=== PATIENT | male | born 2000 | race Two or more races ===

== ENCOUNTER 2025-05-29 20:37 | Emergency (ER) | payer OTHER ==
[~2025-05-29] VITALS: Ht 180.3 cm; Wt 100.0 kg
--- NOTE | 2025-05-29 21:05 | ED.PDOC ---
History of Present Illness HPI Comments 24-year-old male who came to ER via EMS for overdose. Per EMS, family called, stating patient's overdose, as he took 10 tablets of Tylenol, and 10 tablets of propranolol, and was drinking vodka as well. Patient however denied it. He however admits that he is feeling suicidal, but would not explain further, r efusing to answer any more questions at this time. REVIEW OF SYSTEMS: General: No fever, no chills, or fatigue HEENT: No sore throat, no earache, no congestion, no neck pain. Cardiac: No chest pain. No palpitations. Lungs: No shortness of breath, no cough. GI: No nausea, no vomiting, no diarrhea, no constipation, no abdominal pain : No dysuria, frequency, or urgency. No hematuria. Musculoskeletal: No joint pain , no joint swelling, no extremity edema. Skin: No rash, no itching. Neuro: No headache, no dizziness, no weakness Psych: (+) suicidal EXAM: General: Awake, alert and oriented. No acute distress. Skin: Skin in warm, dry and intact. Appropriate color for ethnicity. HEENT: The head is normocephalic and atraumatic. Conjunctivae are clear without exudates or hemorrhage. Sclera is non-icteric. EOM are intact. No signs of nystagmus. Eyelids are normal in appearance without swelling or lesions. Oral mucosa is pink and moist Neck: The neck is supple with normal range of motion. No JVD. Cardiac: Heart rate and rhythm are normal. No murmurs, gallops, or rubs are auscultated. Respiratory: No signs of respiratory distress. Lung sounds are clear in all lobes bilaterally without rales, rhonchi, or wheezes. Abdominal: Abdomen is soft, non-tender without distention. Bowel sounds are present and normoactive in all four quadrants. Extremities: Upper and lower extremities are atraumatic in appearance without deformity or edema. Neurological: The patient is awake, alert and oriented to person, place, and ti me with normal speech. Speech is clear. There is no facial asymmetry. Psychiatric: Appropriate mood and affect. Good judgement and insight Chief Complaint: Overdose Time Seen by MD: 21:05 Reviewed Notes: Operations Trainer Notes Allergies: Coded Allergies: NO KNOWN ALLERGIES (Unverified , 05/29/25) Information Source: Patient, Emergency Med Personnel Mode of Arrival: EMS Past Medical History PAST MEDICAL HISTORY: Depression Surgical History: Denies all surgeries Family History Family History: Reviewed,noncontributory to illness Social History Smoker: Non-Smoker Alcohol: Occasionally Drugs: Denies Drug Use Lives In: Home Was a procedure done? Was a procedure done?: No Differential Dx Considerations may include: Anxiety, depression, suicide ideation, overdose, alcohol intoxication X-Ray, Labs, Meds, VS Vital Signs Date Time Temp Pulse Resp B/P (MAP) Pulse Ox O2 Delivery O2 Flow Rate FiO2 05/30/25 04:49 97.8 95 17 117/65 (82) 99 97.8 05/30/25 04:10 86 05/29/25 20:47 112 05/29/25 20:37 98.6 120 28 122/58 94 98.6 Lab Test 05/30/25 02:54 05/29/25 21:13 Range/Units Acetaminophen Level < 2.0 L < 2.0 L 10.0-20.0 UG/ML White Blood Count 6.9 4.4-10.8 10^3/uL Red Blood Count 5.37 4.5-5.90 10^6/uL Hemoglobin 16.4 13.5-17.5 g/dL Hematocrit 45.8 41.0-53.0 % Mean Corpuscular Volume 85.3 80.0-100.0 fL Mean Corpuscular Hemoglobin 30.5 28.0-32.0 pg Mean Corpuscular Hemoglobin Concent 35.8 32.0-36.0 g/dL Red Cell Distribution Width 15.1 H 11.8-14.3 % Platelet Count 246 140-450 10^3/uL Mean Platelet Volume 8.8 6.9-10.8 fL Neutrophils (%) (Auto) 67.5 37.0-80.0 % Lymphocytes (%) (Auto) 22.1 10.0-50.0 % Monocytes (%) (Auto) 9.4 0.0-12.0 % Eosinophils (%) (Auto) 0.5 0.0-7.0 % Basophils (%) (Auto) 0.5 0.0-2.0 % Neutrophils # (Auto) 4.7 1.6-8.6 10 ^3/uL Lymphocytes # (Auto) 1.5 0.4-5.4 10 ^3/uL Monocytes # (Auto) 0.6 0-1.3 10 ^3/uL Eosinophils # (Auto) 0 0-0.8 10 ^3/uL Basophils # (Auto) 0 0-0.2 10 ^3/uL Nucleated Red Blood Cells 0.1 % Sodium Level 144 136-145 mmol/L Potassium Level 4.1 3.5-5.1 mmol/L Chloride Level 108 H 98-107 mmol/L Carbon Dioxide Level 23 20-31 mmol/L Anion Gap 13 5-15 Blood Urea Nitrogen 10 9-23 mg/dL Creatinine 1.02 0.700-1.30 mg/dL Glomerular Filtration Rate Calc 107 >90 mL/min BUN/Creatinine Ratio 9.8 L 10.0-20.0 Serum Glucose 97 74-106 mg/dL Calcium Level 9.3 8.7-10.4 mg/dL Magnesium Level 2.3 1.6-2.6 mg/dL Total Bilirubin 0.4 0.2-1.0 mg/dL Aspartate Amino Transferase (AST) 28 13-40 U/L Alanine Aminotransferase (ALT) 20 7-40 U/L Alkaline Phosphatase 52 46-116 U/L Salicylates Level < 3.0 -30 mg/dL Plasma/Serum Blood Alcohol 324.4 H <10 mg/dL Time of 1ST Reevaluation: 20:59 Reevaluation 1ST: Unchanged Patient Education/Counseling: Need For Follow Up Family Education/Counseling: No Family Present SEPSIS Sepsis Screen Date sepsis recognized/suspect: May 29, 2025 Time Sepsis recognized/suspect: 2056 Recent Procedure: No On Antibiotic Therapy: No Respiratory Rate >20: Yes Heart Rate >90: Yes Temp<36 C (96.8 F) or >38.3 C: No SBP <90 or MAP <65 mmHG: No New Acute Mental Status Change: No Is the patient on CPAP, BIPAP,: No Physician Orders * Psychiatric Consult (05/29/25 02:21) Sitter At Bedside (05/29/25 20:58) Urinalysis (05/29/25 20:58) Drug Screen (05/29/25 20:58) Soc Telemed Psych Consult (05/29/25 20:58) Electrocardigram (05/29/25 21:06) Vital Signs Date Time Temp Pulse Resp B/P (MAP) Pulse Ox O2 Delivery O2 Flow Rate FiO2 05/30/25 04:49 97.8 95 17 117/65 (82) 99 97.8 05/30/25 04:10 86 05/29/25 20:47 112 05/29/25 20:37 98.6 120 28 122/58 94 98.6 Laboratory Tests Test 05/29/25 21:13 White Blood Count 6.9 10^3/uL (4.4-10.8) Departure 1 Departure Time of Disposition: 05:07 Impression: Primary Impression: Alcohol intoxication without use disorder Additional Impressions: PTSD (post-traumatic stress disorder) Depression Disposition: HOME / SELF CARE / HOMELESS Condition: Stable Additional Instructions: ED DISCHARGE INSTRUCTIONS Instructions: Please read all instructions provided in this packet carefully. Although you have been discharged from the Emergency Department, this does not mean that you have a "clean bill of health". No definitive diagnosis for your symptoms has been made today. It is possible that you are in the process of developing a serious illness. This is why you must return to the ED without fail if any new or worsening symptoms (especially if your symptoms include thoughts of wanting to hurt yourself chest pain, trouble breathing, abdominal pain, fever, headache, confusion, trouble seeing, or trouble walking) It is also very important that you see a primary care provider (PCP) within the next 3-5 days to follow up. [facility] as recommended by the psychiatrist. If you are unable to get an appointment, return to the ED for re-evaluation. Suicidal Thoughts and Behavior: Care Instructions Overview You have been seen by a doctor because you've had thoughts of suicide or have harmed yourself. Your doctor and support team want to help keep you safe. People often think about suicide because they feel hopeless, helpless, or worthless. These feelings may come from having a mental health problem, such as depression. These problems can be treated. It's important to remember that there are people who care about you. Your doctor and support team take your pain very seriously, and they want to help. Treatment and close follow-up care can help you feel better. Follow-up care is a hernandez part of your treatment and safety. Be sure to make and go to all appointments, and call your doctor if you are having problems. It's also a good idea to know your test results and keep a list of the medicines you take. How can you care for yourself at home? Where to get help 24 hours a day, 7 days a week If you or someone you know talks about suicide, self-harm, a mental health crisis, a substance use crisis, or any other kind of emotional distress, get help right away. You can: Call the Suicide and Crisis Lifeline at 798. Call 1-123-630-TALK ( ). Text HOME to 121416 to access the Crisis Text Line. Consider saving these numbers in your phone. Go to [employer] for more information or to chat online. Other things you can do Talk to someone. Be open about your feelings. Reach out to a trusted family member or friend, your doctor, or a counselor. Attend all counseling sessions recommended by your doctor. Make a suicide safety plan. This is a set of steps you can take when you feel suicidal. It includes your warning signs, coping strategies, and people you can ask for support. It's best to work with a therapist to make your plan. Ask someone to remove and store any guns, pills, or other means of suicide. Avoid alcohol and drug use. Be safe with medicines. Take your medicines exactly as prescribed. Call your doctor if you think you are having a problem with your medicine. When should you call for help? Call 021 anytime you think you may need emergency care. For example, call if: You feel you cannot stop from hurting yourself or someone else. Where to get help 24 hours a day, 7 days a week If you or someone you know talks about suicide, self-harm, a mental health crisis, a substance use crisis, or any other kind of emotional distress, get help right away. You can: Call the Suicide and Crisis Lifeline at 988. Call 3-705-465-TALK ( ). Text HOME to 656336 to access the Crisis Text Line. Consider saving these numbers in your phone. Go to [employer] for more information or to chat online. Call your doctor now or seek immediate medical care if: You have one or more warning signs of suicide. For example, call if: You feel like giving away your possessions. You use illegal drugs or drink alcohol heavily. You talk or write about . This may include writing suicide notes and talking about guns, knives, or pills. You start to spend a lot of time alone or spend more time alone than usual. You hear voices. You start acting in an aggressive way that's not normal for you. Watch closely for changes in your health, and be sure to contact your doctor if you have any problems. Credits for Suicidal Thoughts and Behavior: Care Instructions Current as of: February 17, 2024 Author: [employer] Staff Clinical Review Board All [employer] education is reviewed by a team that includes physicians, nurses, advanced practitioners, registered dieticians, and other healthcare professionals. Comments 24-year-old male with alcohol intoxication, a possible acetaminophen overdose and suicidal ideation. Poison control was consulted. Patient was observed in the ED for 8 hours . Assuming it is a level within normal limits. Labs reviewed, not urgently actionable. Psychiatry was consulted and recommended outpatient follow up for patient as he is no longer suicidal. Critical Care Note Critical Care Time?: No Stability Stability form required: No Heart Score Heart Score: Heart Score Response (Comments) Value History N/A 0 EKG N/A 0 Age N/A 0 Risk Factors N/A 0 Troponin N/A 0 Total 0 I personally scribed for JUANI TALBERT MD ([email or web address]) on 05/29/25 at 21:05. Electronically submitted by Dick Valenzuela ([email or web address]). JUANI TALBERT MD May 29, 2025 21:05
[2025-05-29 21:50] LABS: Hematocrit 45.8 % (41.0-53.0); Hemoglobin 16.4 g/dL (13.5-17.5); Mean Corpuscular Hemoglobin 30.5 pg (28.0-32.0); Mean Corpuscular Volume 85.3 fL (80.0-100.0); Nucleated Red Blood Cells % 0.1 %
[2025-05-29 21:53] LABS: Alanine Aminotransferase 20 U/L (7-40); Alkaline Phosphatase 52 U/L (46-116); Anion Gap 13 (5-15); BUN/Creatinine Ratio 9.8 (10.0-20.0); Blood Urea Nitrogen 10 mg/dL (9-23); Calcium 9.3 mg/dL (8.7-10.4); Carbon Dioxide 23 mmol/L (20-31); Glucose 97 mg/dL (74-106); Magnesium 2.3 mg/dL (1.6-2.6); Potassium 4.1 mmol/L (3.5-5.1); Sodium 144 mmol/L (136-145)
[2025-05-29 21:54] LABS: Bilirubin, Total 0.4 mg/dL (0.2-1.0)
[2025-05-29 21:56] LABS: Acetaminophen < 2.0 UG/ML (10.0-20.0); Chloride 108 mmol/L (98-107); Salicylate < 3.0 mg/dL (-30)
--- NOTE | 2025-05-30 00:59 | DVHINCON2 ---
Date of Service if different f: May 30, 2025 Time of Service: 00:19 Consultation ([facility]) Consulting Physician: SCOTT ISRAEL MD Labs Laboratory Tests Test 05/29/25 21:13 White Blood Count 6.9 10^3/uL (4.4-10.8) Red Blood Count 5.37 10^6/uL (4.5-5.90) Hemoglobin 16.4 g/dL (13.5-17.5) Hematocrit 45.8 % (41.0-53.0) Mean Corpuscular Volume 85.3 fL (80.0-100.0) Mean Corpuscular Hemoglobin 30.5 pg (28.0-32.0) Mean Corpuscular Hemoglobin Concent 35.8 g/dL (32.0-36.0) Red Cell Distribution Width 15.1 % (11.8-14.3) Platelet Count 246 10^3/uL (140-450) Mean Platelet Volume 8.8 fL (6.9-10.8) Neutrophils (%) (Auto) 67.5 % (37.0-80.0) Lymphocytes (%) (Auto) 22.1 % (10.0-50.0) Monocytes (%) (Auto) 9.4 % (0.0-12.0) Eosinophils (%) (Auto) 0.5 % (0.0-7.0) Basophils (%) (Auto) 0.5 % (0.0-2.0) Neutrophils # (Auto) 4.7 10 ^3/uL (1.6-8.6) Lymphocytes # (Auto) 1.5 10 ^3/uL (0.4-5.4) Monocytes # (Auto) 0.6 10 ^3/uL (0-1.3) Eosinophils # (Auto) 0 10 ^3/uL (0-0.8) Basophils # (Auto) 0 10 ^3/uL (0-0.2) Nucleated Red Blood Cells 0.1 % Sodium Level 144 mmol/L (136-145) Potassium Level 4.1 mmol/L (3.5-5.1) Chloride Level 108 mmol/L (98-107) Carbon Dioxide Level 23 mmol/L (20-31) Anion Gap 13 (5-15) Blood Urea Nitrogen 10 mg/dL (9-23) Creatinine 1.02 mg/dL (0.700-1.30) Glomerular Filtration Rate Calc 107 mL/min (>90) BUN/Creatinine Ratio 9.8 (10.0-20.0) Serum Glucose 97 mg/dL (74-106) Calcium Level 9.3 mg/dL (8.7-10.4) Magnesium Level 2.3 mg/dL (1.6-2.6) Total Bilirubin 0.4 mg/dL (0.2-1.0) Aspartate Amino Transf (AST/SGOT) 28 U/L (13-40) Alanine Aminotransferase (ALT/SGPT) 20 U/L (7-40) Alkaline Phosphatase 52 U/L (46-116) Salicylates Level < 3.0 mg/dL (-30) Acetaminophen Level < 2.0 UG/ML (10.0-20.0) Plasma/Serum Blood Alcohol 324.4 mg/dL (<10) Appearance: Stated age Psychomotor activity: WNL Behavioral: Cooperative Eye contact: Appropriate Speech: WNL Affect: Appropriate Mood: Depressed Thought processes: Linear/Goal-directed Thought content: WNL Suicidal ideations: Absent Homicidal ideations: Absent Orientation: Person, Place, Time, Situation Memory intact: Recent Intellect: Average Abstractability: WNL Concentration: Adequate Attention: Adequate Judgement: WNL Insight: Fair Vitals Vital Signs Date Time Temp Pulse Resp B/P (MAP) Pulse Ox O2 Delivery O2 Flow Rate FiO2 05/29/25 20:47 112 05/29/25 20:37 98.6 28 122/58 94 98.6 Treatment plan discussed: With staff Medication adjusted: No Labs ordered: No Psychotherapy provided: No Type: Voluntary History of Present Illness Reason for Consult : psychiatric evaluation PER ED PHYSICIAN NOTE: 24-year-old male who came to ER via EMS for overdose. Per EMS, family called, stating patient's overdose, as he took 10 tablets of Ty lenol, and 10 tablets of propranolol, and was drinking vodka as well. Patient however denied it. He however admits that he is feeling suicidal, but would not explain further, refusing to answer any more questions at this time. PSYCHIATRIST HPI: The patient was seen and evaluated at [facility] ED via telepsychiatry platform.24 yr old male reported "I'm really down" He stated this last week, he has felt like doing something to end his life. He said he has just felt depressed over the past year. He moved [place] last month to be near family. He had lived in [facility] for the past three years and wasn't doing so good out there. He noted he has PTSD from childhood trauma. Sleep has been okay lately getting about 8-10 hrs a night. He stated he is no longer suicidal. He stated he would like to get in with a therapist to talk to on a regular basis. [facility] He denied having any current suicidal ideation, plan or intent. He reported he feels comfortable returning home and plans to go to his appointment with [facility] in the near future. . He denied homicidal ideation, plan or intent. He denied having auditory or visual hallucinations. Past Psychiatric History : Diagnosed with PTSD, [place] and depression. 3-4 hospitalizations. Last hospitalized in 2023 in [facility]. 5 past suicide attempts. Last suicide attempt was 6 months ago. Past Medical History: none Current Medications: Propranolol 25mg BID, hydroxyzine 50 mg BID PRN, venlafaxine xr 150mg Substance use: Alcohol-"I'm a bottomless pit when it comes to alcohol." He drinks several bottles of vodka a week. Did [facility] rehab program in past. Longest sobriety has been six months. Vapes nicotine. Denied use of other substance use. Social History : Lives in [place] with aunt. Never , no children. Unemployed. A few credits short of associates degree and plans to finish at [employer] in the spring. [employer] for four active years. Is working on VA disability rating. Diagnosis: ALCOHOL USE DISORDER with intoxication; PTSD; UNSPECIFIED DEPRESSIVE DISORDER Formulation: This 24 yr old male appears to suffer from depression, PTSD, and alcohol use disorder. He is not currently suicidal and does not warrant hospitalization at this time. [facility] and he would benefit from refraining from alcohol use. Plan: 1.The patient is psychologically cleared for discharge. 2. Legal-Voluntary. 3. Medication:continue present outpatient regimen. 4. Contact psychiatry if further evaluation or follow up is desired. 5. case discussed with ED physician, Assessment/Diagnosis/Plan Reviewed: Labs, Medications, Previous Orders SCOTT ISRAEL MD May 30, 2025 00:20
[2025-05-30 04:49] VITALS: BP 117/65; PULSE 95; RESP 17; TEMP 97.8; O2SAT 99
--- NOTE | 2025-05-30 06:29 | ECG ---
[facility] Test Date: 2025-05-29 Test Time: 20:47:52 Pat Name: EMMA ERICKSON Department: [facility] ED Patient ID: [id number] Room: Gender: M Adjunct Instructor In Economics: BETH : 2000 Requested By: JUANI TALBERT Order Number: [id number] Reading MD: Measurements Intervals Velpen Rate: 112 P: 41 MA: 170 QRS: 13 QRSD: 109 T: 29 QT: 326 QTc: 445 Interpretive Statements Sinus tachycardia RSR' in V1 or V2, right VCD or RVH Please click the below link to view image of tracing.
== END 2025-05-30 06:01 | disposition home or self-care (01) ==
LOC: EDBD 20:37 → ER 20:37
DX: F10.129 Alcohol abuse with intoxication, unspecified (principal); F43.10 Post-traumatic stress disorder, unspecified; F32.A Depression, unspecified; F17.290 Nicotine dependence, other tobacco product, uncomplicated; Z79.899 Other long term (current) drug therapy; Y90.9 Presence of alcohol in blood, level not specified
CPT/HCPCS: 36415; 80048; 80320; 80329; 82247; 83735; 84075; 84450; 84460; 85025; 93005